=== PATIENT | male | born 1950 | race Caucasian/White ===

== ENCOUNTER 2021-12-15 08:16 | Day surgery (SDC) | payer BC ==
[2021-12-13 14:40] VITALS: BMI 21.9
[2021-12-15 10:25] VITALS: RESP 16; TEMP 98
[2021-12-15 10:27] VITALS: BP 119/74; PULSE 61
== END 2021-12-15 10:42 | disposition home or self-care (01) ==
LOC: FASU-ENDO 08:16
PROVIDERS: ATTEND Internal Medicine Gastroenterology
PROC: 0DBN8ZX Excision of Sigmoid Colon, Via Natural or Artificial Opening Endoscopic, Diagnostic (ICD-10-PCS; 2021-12-15)
PROC: 0DBK8ZX Excision of Ascending Colon, Via Natural or Artificial Opening Endoscopic, Diagnostic (ICD-10-PCS; principal; 2021-12-15 09:46)
DX: Z12.11 Encounter for screening for malignant neoplasm of colon (principal); Z86.010 Personal history of colon polyps; D12.2 Benign neoplasm of ascending colon; D12.5 Benign neoplasm of sigmoid colon; K57.30 Diverticulosis of large intestine without perforation or abscess without bleeding
CPT/HCPCS: 88305-TC